=== PATIENT | male | born 1930 | race Caucasian/White ===

== ENCOUNTER 2017-12-04 01:55 | Observation (INO) | payer OTHER, BC ==
[2017-12-04] VITALS (7 sets, daily range): BP systolic 140–195; BP diastolic 63–88
[~2017-12-04] VITALS: Ht 180.3 cm; Wt 89.8 kg
[~2017-12-04 01:55] MED LIST: ALLOPURINOL100 MG PO; BENICAR40 MG PO; CARVEDILOL25 MG PO; GLIMEPIRIDE1 MG PO; IRBESARTAN300 MG PO; JANUVIA25 M1 PO; KEFLEX500 MG PO; LANTUS 3 M100 UNITS1 SQ; LIPITOR40 MG PO; LISINOPRIL10 MG PO; MIRALAX17 GM PO; OMEPRAZOLE20 M2 PO; ULTRAM50 MG PO; WARFARIN SODIUM5 MG PO; warfarin PO
[2017-12-04 03:31] LABS: BASOPHIL (%) 0.7 % (0-1); EOSINOPHIL (%) 1.7 % (0-5); EOSINOPHIL COUNT 0.1 K/uL (0-0.3); HEMATOCRIT 37.7 % (38.0-50.0); HEMOGLOBIN 12.4 G/DL (12.5-16.6); IMMATURE GRANULOCYTE (%) 0.3 % (0.0-0.7); LYMPHOCYTE (%) 14.7 % (15-42); LYMPHOCYTE COUNT 0.9 K/uL (1.0-2.8); MCH 29.2 PG (29.0-34.0); MCHC 32.9 G/DL (30.0-36.0); MCV 88.7 FL (86-99); MONOCYTE (%) 9.9 % (3-12); MONOCYTE COUNT 0.6 K/uL (0-0.8); NEUTROPHIL (%) 72.7 % (45-76); NEUTROPHIL COUNT 4.3 K/uL (1.8-6.4); PLATELET COUNT 158 K/uL (156-360); RBC DIS.WIDTH-CV 16.7 % (11.8-14.6); RBC DIS.WIDTH-SD 54.5 % (39-53); RED BLOOD COUNT 4.25 M/uL (4.00-5.50); WHITE BLOOD COUNT 5.9 K/uL (4.1-10.2)
[2017-12-04 03:44] LABS: CHLORIDE 101 mEq/L (99-109); POTASSIUM 4.9 mEq/L (3.7-5.4); SODIUM 136 mEq/L (136-147)
[2017-12-04 03:46] LABS: GLUCOSE 204 mg/dL (70-99); TOTAL PROTEIN 8.4 g/dL (6.4-8.3)
[2017-12-04 03:48] LABS: TOTAL BILIRUBIN 0.8 mg/dL (0.0-1.0)
[2017-12-04 03:50] LABS: ALKALINE PHOSPHATASE 183 IU/L (3-129); CREATININE 1.8 mg/dL (0.6-1.3); GFR ESTIMATE (CALCULATED) 38 mL/min/ (58.99-99999)
[2017-12-04 03:51] LABS: AST (GOT) 17 IU/L (2-34); UREA NITROGEN (BUN) 31 mg/dL (9-23)
[2017-12-04 03:52] LABS: DIRECT BILIRUBIN 0.5 mg/dL (0.0-0.3)
[2017-12-04 03:53] LABS: ALT (GPT) 17 IU/L (3-49)
[2017-12-04 03:58] LABS: TROP-I INTERPRETATION NEGATIVE; TROPONIN-I 0.01 ng/mL (0.0-0.30)
[2017-12-04 04:38] LABS: INTER. NORMALIZED RATIO 2.4
[2017-12-04] MEDS ORDERED: LIPITOR40 MG PO (04:45)
[2017-12-04] MEDS ORDERED: OMEPRAZOLE40 M1 PO (04:45)
[2017-12-04] MEDS ORDERED: ZYLOPRIM100 MG PO (04:46)
[2017-12-04] MEDS ORDERED: COREG25 M1 PO (04:47)
[2017-12-04] MEDS ORDERED: AVAPRO300 MG PO (04:48)
[2017-12-04] MEDS ORDERED: COUMADIN5 MG PO (04:48)
[2017-12-04] MEDS ORDERED: LANTUS 3 M100 UNITS1 SC (04:49)
[2017-12-04] MEDS ORDERED: VICKS VAPOINHA1 EACH NS (07:34)
[2017-12-04 12:17] LABS: TROP-I INTERPRETATION NEGATIVE; TROPONIN-I 0.02 ng/mL (0.0-0.30)
[2017-12-04 18:19] LABS: TROP-I INTERPRETATION NEGATIVE; TROPONIN-I 0.02 ng/mL (0.0-0.30)
[2017-12-05 03:40] VITALS: BP 158/72
[2017-12-05 05:49] LABS: HEMATOCRIT 34.8 % (38.0-50.0); HEMOGLOBIN 11.6 G/DL (12.5-16.6); MCH 29.3 PG (29.0-34.0); MCHC 33.3 G/DL (30.0-36.0); MCV 87.9 FL (86-99); PLATELET COUNT 154 K/uL (156-360); RBC DIS.WIDTH-CV 16.8 % (11.8-14.6); RBC DIS.WIDTH-SD 53.9 % (39-53); RED BLOOD COUNT 3.96 M/uL (4.00-5.50)
[2017-12-05 06:13] LABS: CHLORIDE 103 MEQ/L (99-109); GFR ESTIMATE (CALCULATED) 56 mL/min/ (58.99-99999); SODIUM 136 MEQ/L (136-147); UREA NITROGEN (BUN) 28 mg/dL (9-23)
[2017-12-05 06:14] LABS: CREATININE 1.3 MG/DL (0.6-1.3); GLUCOSE 102 mg/dL (70-99)
[2017-12-05 07:41] VITALS: BP 186/86
[2017-12-05 10:12] LABS: INTER. NORMALIZED RATIO 2.4
[2017-12-05 11:31] VITALS: BP 159/104
[2017-12-05 11:43] VITALS: BP 172/74
[2017-12-05 14:22] VITALS: BP 154/74
[2017-12-05] MEDS ORDERED: NORVASC10 MG PO (15:02)
[2017-12-05] MEDS ORDERED: ASPIR 8181 M1 PO (15:03)
[2017-12-06] MEDS ORDERED: AMLODIPINE BESY10 MG PO (14:04)
== END 2017-12-05 15:27 | disposition home or self-care (01) ==
LOC: EME 01:55 → 4SOUTH 05:57 → EDOF 05:57 → ENRESERV 05:59 → 4SOUTH 07:39
PROVIDERS: Emergency Medicine; Family Medicine; Hospitalist; Internal Medicine
DX: M25.511 Pain in right shoulder (principal); R94.31 Abnormal electrocardiogram [ECG] [EKG]; I12.9 Hypertensive chronic kidney disease with stage 1 through stage 4 chronic kidney disease, or unspecified chronic kidney disease; N18.3 Chronic kidney disease, stage 3 (moderate); I48.2 Chronic atrial fibrillation; I25.10 Atherosclerotic heart disease of native coronary artery without angina pectoris; E11.22 Type 2 diabetes mellitus with diabetic chronic kidney disease; E78.5 Hyperlipidemia, unspecified; Z79.01 Long term (current) use of anticoagulants; M19.011 Primary osteoarthritis, right shoulder; Z87.891 Personal history of nicotine dependence; I25.2 Old myocardial infarction; Z79.4 Long term (current) use of insulin
CPT/HCPCS: 71046; 73030; 80048; 80076; 82948; 84484; 85025; 85027; 85610; 93005; 99281; 99285; G0378; J1815